=== PATIENT | female | born 1940 | race Caucasian/White ===

== ENCOUNTER 2017-01-24 20:01 | Inpatient (IN) | payer MEDICARE, OTHER ==
[~2017-01-24] VITALS: Ht 147.3 cm; Wt 53.5 kg
[2017-01-24 21:55] LABS: RED BLOOD COUNT 3.91 M/UL (4.00-5.10)
[2017-01-24 22:15] LABS: BUN/CREATININE RATIO 16 (0-10)
[2017-01-25 07:42] LABS: BUN/CREATININE RATIO 14 (0-10)
[2017-01-25] MEDS ORDERED: MAGNESIUM100 MG PO (11:38)
[2017-01-25] MEDS ORDERED: VITAMIN B-1000 MCG/M IM (11:40)
[2017-01-25] MEDS ORDERED: POTASSIUM99 M1 PO (11:40)
[2017-01-25] MEDS ORDERED: COREG 25MG TAB25 MG PO (12:21)
[2017-01-25] MEDS ORDERED: NEURONTIN 400400 MG PO (12:21)
[2017-01-25] MEDS ORDERED: CLARITIN10 M2 PO (12:22)
[2017-01-25] MEDS ORDERED: KLONOPIN TAB 00.5 MG PO (12:22)
[2017-01-25] MEDS ORDERED: OMEPRAZOLE20 M1 PO (12:22)
[2017-01-25] MEDS ORDERED: SYNTHROID75 MCG PO (12:23)
[2017-01-25] MEDS ORDERED: VERAPAMIL SR240 MG PO (12:23)
[2017-01-25] MEDS ORDERED: COZAAR100 MG PO (12:23)
[2017-01-25] MEDS ORDERED: ULTRAM50 MG PO (12:24)
[2017-01-25] MEDS ORDERED: ROPINIROLE HCL0.5 MG PO (12:24)
[2017-01-25] MEDS ORDERED: COLACE 100MG C100 MG PO (12:24)
[2017-01-25] MEDS ORDERED: HYDROCHLOROTHIA25 MG PO (12:30)
[2017-01-25] MEDS ORDERED: MULTIVITAMINS1 EAC2 PO (12:31)
[2017-01-28 05:44] LABS: BUN/CREATININE RATIO 18 (0-10)
[2017-01-28 17:16] LABS: BUN/CREATININE RATIO 16 (0-10)
[2017-01-29 06:05] LABS: BUN/CREATININE RATIO 20 (0-10)
[2017-01-30] MEDS ORDERED: PROTONIX40 MG PO (13:36)
== END 2017-01-30 14:36 | disposition home health service (06) | DRG 640 ==
LOC: ER1 20:01 → ZEROF 23:40 → M/S 01-25 17:04
PROVIDERS: Emergency Medicine; Internal Medicine; Internal Medicine Nephrology; Physician Assistant Medical; ADMIT Internal Medicine
DX: E87.1 Hypo-osmolality and hyponatremia (principal); G93.40 Encephalopathy, unspecified; G45.9 Transient cerebral ischemic attack, unspecified; I10 Essential (primary) hypertension; I45.81 Long QT syndrome; T50.2X5A Adverse effect of carbonic-anhydrase inhibitors, benzothiadiazides and other diuretics, initial encounter; M06.9 Rheumatoid arthritis, unspecified; E03.9 Hypothyroidism, unspecified; Z86.73 Personal history of transient ischemic attack (TIA), and cerebral infarction without residual deficits; K44.9 Diaphragmatic hernia without obstruction or gangrene; G25.81 Restless legs syndrome; Z96.1 Presence of intraocular lens; M25.551 Pain in right hip; Z91.81 History of falling; Z28.21 Immunization not carried out because of patient refusal; Z79.899 Other long term (current) drug therapy; I25.2 Old myocardial infarction; Y92.009 Unspecified place in unspecified non-institutional (private) residence as the place of occurrence of the external cause
CPT/HCPCS: ECHO; 36415; 70450; 71010; 72125; 73502; 80048; 80053; 81001; 82570; 83690; 83735; 83880; 83930; 83935; 84300; 84439; 84443; 84478; 84484; 85025; 85610; 85730; 87040; 87077; 87086; 87186; 93005; 93306; 96361; 96365; 97110; 97116; 97530; 97535; 99291; J7040

== ENCOUNTER 2021-04-07 23:33 | Inpatient (IN) | payer MEDICARE, OTHER ==
[~2021-04-07] VITALS: Ht 149.9 cm; Wt 70.8 kg
[~2021-04-07 23:33] MED LIST: ALENDRONATE SOD70 MG PO; ANTIVERT 25MG T25 MG PO; CLARITIN10 M2 PO; COLACE 100MG C100 MG PO; COREG 25MG TAB25 MG PO; COZAAR100 MG PO; CULTURELLE1 EACH PO; DESYREL 50 MG T50 MG PO; ECOTRIN81 MG PO; FEOSOL325 MG PO; FISH OIL 1,0001 EAC1 PO; FLEXERIL 10 MG10 MG PO; FOLIC ACID 1 MG1 MG PO; HYDROCHLOROTHIA25 MG PO; K-DUR TAB 10 M10 MEQ PO; KLONOPIN TAB 00.5 MG PO; KLONOPIN1 MG PO; LIDOPATCH1 EACH TP; MAGNESIUM100 MG PO; METHOTREXATE T2.5 MG PO; MULTIVITAMINS1 EAC2 PO; NEURONTIN 400400 MG PO; OMEPRAZOLE20 M1 PO; PLAQUENIL 200200 MG PO; POTASSIUM99 M1 PO; PREDNISONE5 MG PO; PROTONIX40 MG PO; ROPINIROLE HCL0.5 MG PO; SINGULAIR10 MG PO; SYNTHROID75 MCG PO; TAMIFLU75 MG PO; THERAGRAN M TAB1 EA PO; TREXALL10 MG PO; ULTRAM50 MG PO; VERAPAMIL SR240 MG PO; VITAMIN B-1000 MCG/M IM; VITAMIN B-1000 MCG/M SC; VITAMIN C500 M2 PO; ZOFRAN4 MG PO; [UNRECOGNIZED DRUG - OTHER] TOP; [UNRECOGNIZED DRUG - OTHER] TOP
[2021-04-08] MEDS ORDERED: SYNTHROID100 MCG PO (00:49)
[2021-04-08] MEDS ORDERED: ROPINIROLE HCL1 MG PO (00:51)
[2021-04-08 01:12] LABS: HEMOGLOBIN 11.1 gm/dl (12.3-15.3); RED BLOOD COUNT 3.5 M/UL (4.00-5.10)
[2021-04-08 01:23] LABS: BUN/CREATININE RATIO 7 (0-10)
[2021-04-08] MEDS ORDERED: ALENDRONATE SOD70 MG PO (04:35)
[2021-04-08] MEDS ORDERED: CARAFATE1 GM PO (04:37)
[2021-04-08] MEDS ORDERED: HYDROCODON-ACE1 EAC1 PO (04:38)
[2021-04-08] MEDS ORDERED: GABAPENTIN600 MG PO (04:39)
[2021-04-08] MEDS ORDERED: MUCUS RLF DM E1 EACH PO (04:40)
[2021-04-08] MEDS ORDERED: PLAQUENIL 200200 MG PO (04:41)
[2021-04-08] MEDS ORDERED: SINEQUAN CAP 1010 MG PO (04:41)
[2021-04-08] MEDS ORDERED: EDARBI80 MG PO (04:42)
[2021-04-08] MEDS ORDERED: LIPITOR TAB 2020 MG PO (04:42)
[2021-04-08] MEDS ORDERED: SERTRALINE HCL25 MG PO (04:43)
[2021-04-08] MEDS ORDERED: PREDNISONE 5 MG5 MG PO (04:43)
[2021-04-08] MEDS ORDERED: LEVOFLOXACIN750 MG PO (04:45)
[2021-04-08] MEDS ORDERED: CALCIUM + VITA1 EACH PO (04:45)
[2021-04-08] MEDS ORDERED: AMLODIPINE BESYL5 MG PO (04:45)
[2021-04-08] MEDS ORDERED: MEDROL TAB 4 MG4 MG PO (04:54)
[2021-04-08] MEDS ORDERED: IPRAT-ALBUT 0.5-3 ML INH (04:55)
[2021-04-08] MEDS ORDERED: HYDROCODON-ACE1 EAC2 PO (06:48)
[2021-04-08 10:04] LABS: BORDETELLA PARAPERTUSSIS Not Detected (Not Detectd); BORDETELLA PERTUSSIS Not Detected (Not Detectd); CHLAMYDIA PNEUMONIAE Not Detected (Not Detectd); CORONAVIRUS HKU1 Not Detected (Not Detectd); CORONAVIRUS NL63 Not Detected (Not Detectd); CORONAVIRUS OC43 Not Detected (Not Detectd); CORONOAVIRUS 229E Not Detected (Not Detectd); HUMAN METAPNEUMOVIRUS Not Detected (Not Detectd); HUMAN RHINOVIRUS/ENTEROVIRUS Not Detected (Not Detectd); INFLUENZA A Not Detected (Not Detectd); INFLUENZA B Not Detected (Not Detectd); MYCOPLASMA PNEUMONIAE Not Detected (Not Detectd); PARAINFLUENZA VIRUS 1 Not Detected (Not Detectd); PARAINFLUENZA VIRUS 2 Not Detected (Not Detectd); PARAINFLUENZA VIRUS 4 Not Detected (Not Detectd); RESPIRATORY SYNCYTIAL VIRUS Not Detected (Not Detectd)
[2021-04-08 12:44] LABS: PARAINFLUENZA VIRUS 3 DETECTED (Not Detectd); SARS-CoV-2 NOT DETECTED (Not Detectd)
--- NOTE | 2021-04-08 14:16 | NUR ---
reported to dr. herrera patient very anxious and complaints of sick of her stomach. received order for chyna and stated I have to see patient first
[2021-04-09 03:27] LABS: HEMOGLOBIN 10.2 gm/dl (12.3-15.3); RED BLOOD COUNT 3.2 M/UL (4.00-5.10)
[2021-04-09 03:35] LABS: WHITE BLOOD COUNT 10.5 K/UL (4.5-11.0)
[2021-04-09 03:51] LABS: BUN/CREATININE RATIO 11 (0-10)
--- NOTE | 2021-04-09 05:58 | NUR ---
0536 WENT INTO PATIENT'S ROOM TO GIVE HER MORNING MEDICINE. PATIENT BECAME ANXIOUS AND WOKE HER DAUGHTER UP. PATIENT STATED SHE WAS NOT TAKING HER MEDICATION UNTIL SHE TOOK HER GOWN OFF BECAUSE SHE WAS BURNING UP. DAUGHTER GOT UPSET WITH PATIENT AND LEFT. THIS MADE THE PATIENT GET EVEN MORE ANXIOUS AND SHE GOT UP OUT OF BED. PATIENT YELLING AT STAFF. PATIENT TOOK TELEMETRY OFF AND TRIED TO RIP HER IV OUT. PATIENT REFUSED ALL MORNING PO MEDS. 9748 NOTIFIED YANETH PRINCEESCROW REPRESENTATIVE FOR POSSIBLE SITTER FOR PATIENT TODAY. YANETH STATED SHE WOULD COME AND TALK TO THE PATIENT AND TRY TO CONSOLE HER.
--- NOTE | 2021-04-09 06:05 | NUR ---
0600 YANETH PRINCEPICK PULLING MACHINE OPERATOR CAME AND SPOKE TO PATIENT AND THE PATIENT STATED THAT SHE WOULD TAKE HER MEDICINE AND GET BACK INTO BED IF "WE JUST GAVE HER A MINUTE TO CALM DOWN." 0605 OSVALDO PRINCE AND PRECIOUS PRINCE IN ROOM TRYING TO CONSOLE PATIENT TO GIVE HER MEDICINE.
[2021-04-10 03:49] LABS: HEMOGLOBIN 9.1 gm/dl (12.3-15.3); RED BLOOD COUNT 2.89 M/UL (4.00-5.10)
[2021-04-10 04:03] LABS: WHITE BLOOD COUNT 6.5 K/UL (4.5-11.0)
[2021-04-10 04:14] LABS: BUN/CREATININE RATIO 12 (0-10)
[2021-04-11 00:35] LABS: HEMOGLOBIN 9.1 gm/dl (12.3-15.3); RED BLOOD COUNT 2.89 M/UL (4.00-5.10); WHITE BLOOD COUNT 5.1 K/UL (4.5-11.0)
[2021-04-11 01:05] LABS: BUN/CREATININE RATIO 7 (0-10)
[2021-04-11 04:59] LABS: BUN/CREATININE RATIO 7 (0-10)
[2021-04-12 02:12] LABS: HEMOGLOBIN 9.3 gm/dl (12.3-15.3); RED BLOOD COUNT 2.94 M/UL (4.00-5.10); WHITE BLOOD COUNT 5.6 K/UL (4.5-11.0)
[2021-04-12 02:32] LABS: BUN/CREATININE RATIO 7 (0-10)
[2021-04-14 01:23] LABS: BUN/CREATININE RATIO 5 (0-10)
--- NOTE | 2021-04-15 17:50 | NUR ---
INSTRUCTED ON IMPORTANCE OF RETURNING TO HOSPITAL FOR CHEST PAIN, FOLLOW UP WITH MD SCHEDULED. VERBALIZED UNDERSTANDING. JEROMY MCRAE R.N.
== END 2021-04-15 18:52 | disposition home or self-care (01) | DRG 193 ==
LOC: ER1 23:33 → M/S 04-08 03:20 → CDU 04-08 03:20 → M/S 04-08 04:06
PROVIDERS: Internal Medicine; Internal Medicine Nephrology; Physician Assistant Medical; ADMIT Internal Medicine
DX: J10.08 Influenza due to other identified influenza virus with other specified pneumonia (principal); J96.21 Acute and chronic respiratory failure with hypoxia; E87.1 Hypo-osmolality and hyponatremia; D84.9 Immunodeficiency, unspecified; G89.29 Other chronic pain; M54.9 Dorsalgia, unspecified; E03.9 Hypothyroidism, unspecified; J39.8 Other specified diseases of upper respiratory tract; F41.9 Anxiety disorder, unspecified; J18.9 Pneumonia, unspecified organism; M06.9 Rheumatoid arthritis, unspecified; Z20.822 Contact with and (suspected) exposure to COVID-19; F03.90 Unspecified dementia, unspecified severity, without behavioral disturbance, psychotic disturbance, mood disturbance, and anxiety; I10 Essential (primary) hypertension; K44.9 Diaphragmatic hernia without obstruction or gangrene; E87.6 Hypokalemia; Z79.891 Long term (current) use of opiate analgesic; Z86.73 Personal history of transient ischemic attack (TIA), and cerebral infarction without residual deficits; Z98.49 Cataract extraction status, unspecified eye; Z82.49 Family history of ischemic heart disease and other diseases of the circulatory system
CPT/HCPCS: 36415; 36600; 71045; 71250; 71260; 80048; 80053; 82436; 82533; 82803; 83605; 83880; 83930; 83935; 84132; 84133; 84295; 84300; 84443; 84484; 85025; 85027; 87040; 87070; 87081; 87205; 87278; 87633; 93005; 94640; 94664; 94760; 96374; 97116-GP-CQ; 97161; 97166; 97530-GP-CQ; 97535; 99285; J0692; J1335; J1650; J2185; J2270; J2405; J7030; J7131; Q9963; U0002

== ENCOUNTER 2021-07-31 14:29 | Inpatient (IN) | payer MEDICARE, OTHER ==
[~2021-07-31] VITALS: Ht 149.9 cm; Wt 61.2 kg
[~2021-07-31 14:29] MED LIST changes: +AMLODIPINE BESYL5 MG PO; +CALCIUM + VITA1 EACH PO; +CARAFATE1 GM PO; +EDARBI80 MG PO; +GABAPENTIN600 MG PO; +HYDROCODON-ACE1 EAC1 PO; +HYDROCODON-ACE1 EAC2 PO; +IPRAT-ALBUT 0.5-3 ML INH; +LEVOFLOXACIN750 MG PO; +LIPITOR TAB 2020 MG PO; +MEDROL TAB 4 MG4 MG PO; +MUCUS RLF DM E1 EACH PO; +PREDNISONE 5 MG5 MG PO; +ROPINIROLE HCL1 MG PO; +SERTRALINE HCL25 MG PO; +SINEQUAN CAP 1010 MG PO; +SYNTHROID100 MCG PO
[2021-07-31 16:02] LABS: HEMOGLOBIN 11.4 gm/dl (12.3-15.3); RED BLOOD COUNT 3.58 M/UL (4.00-5.10); WHITE BLOOD COUNT 8.2 K/UL (4.5-11.0)
[2021-07-31 16:32] LABS: BUN/CREATININE RATIO 9 (0-10)
[2021-08-01] MEDS ORDERED: EDARBI80 MG PO (04:12)
[2021-08-01 06:29] LABS: BUN/CREATININE RATIO 8 (0-10)
== END 2021-08-01 12:15 | disposition left against medical advice (07) | DRG 643 ==
LOC: ER1 14:29 → CDU 17:35
PROVIDERS: Preventive Medicine Occupational Medicine; ADMIT Internal Medicine
DX: E22.2 Syndrome of inappropriate secretion of antidiuretic hormone (principal); G93.41 Metabolic encephalopathy; M06.9 Rheumatoid arthritis, unspecified; E03.9 Hypothyroidism, unspecified; I10 Essential (primary) hypertension; F03.90 Unspecified dementia, unspecified severity, without behavioral disturbance, psychotic disturbance, mood disturbance, and anxiety; K44.9 Diaphragmatic hernia without obstruction or gangrene; Z20.822 Contact with and (suspected) exposure to COVID-19; Z86.73 Personal history of transient ischemic attack (TIA), and cerebral infarction without residual deficits; Z98.49 Cataract extraction status, unspecified eye; Z98.890 Other specified postprocedural states; Z82.49 Family history of ischemic heart disease and other diseases of the circulatory system
CPT/HCPCS: 36600; 51701; 70450; 71045; 80048; 80053; 81001; 82140; 82533; 82550; 82553; 82570; 82803; 83690; 83874; 83935; 84300; 84439; 84443; 84484; 85025; 85652; 86140; 87086; 99285; J1650; J7030; U0002

== ENCOUNTER 2021-12-24 20:23 | Observation (INO) | payer MEDICARE, OTHER ==
[~2021-12-24] VITALS: Ht 149.9 cm; Wt 55.3 kg
[~2021-12-24 20:23] MED LIST changes: -SYNTHROID100 MCG PO; +SYNTHROID50 MCG PO
[2021-12-24 22:19] LABS: HEMOGLOBIN 14.1 gm/dl (12.3-15.3); RED BLOOD COUNT 4.48 M/UL (4.00-5.10); WHITE BLOOD COUNT 5.5 K/UL (4.5-11.0)
[2021-12-24 22:43] LABS: BUN/CREATININE RATIO 22 (0-10)
[2021-12-25 05:43] LABS: BUN/CREATININE RATIO 22 (0-10)
[2021-12-25] MEDS ORDERED: AMLODIPINE BES2.5 MG PO (10:09)
[2021-12-25] MEDS ORDERED: EDARBI80 MG PO (10:10)
[2021-12-25] MEDS ORDERED: SUCRALFATE1 GM PO (10:10)
[2021-12-25] MEDS ORDERED: PROMETHAZINE12.5 M1 PO (10:11)
[2021-12-25] MEDS ORDERED: SODIUM CHLORIDE1 GM PO (10:11)
[2021-12-26 04:32] LABS: HEMOGLOBIN 11.1 gm/dl (12.3-15.3); RED BLOOD COUNT 3.5 M/UL (4.00-5.10); WHITE BLOOD COUNT 3.4 K/UL (4.5-11.0)
[2021-12-26 04:53] LABS: BUN/CREATININE RATIO 14 (0-10)
[2021-12-26] MEDS ORDERED: POTASSIUM CHLO20 ME1 PO (11:50)
--- NOTE | 2021-12-26 12:40 | NUR ---
PATIENTS DAUGHTER STATES THAT HER RIDE IS HERE AT THIS TIME AND THAT THEY CANNOT WAIT. PROVIDER MADE AWARE THAT PATIENT WANTS TO LEAVE BE FORE FINISHING THE MAGNESIUM INSUSION. HE STATES THAT IT IS FINE TO GO AHEAD AND DC THE PATIENT.
== END 2021-12-26 13:02 | disposition home or self-care (01) ==
LOC: ER1 20:23 → CDU 12-25 02:02 → M/S 12-25 16:07
PROVIDERS: Internal Medicine; Physician Assistant; ADMIT Internal Medicine
DX: U07.1 COVID-19 (principal); J02.9 Acute pharyngitis, unspecified; E22.2 Syndrome of inappropriate secretion of antidiuretic hormone; I10 Essential (primary) hypertension; M06.9 Rheumatoid arthritis, unspecified; E03.9 Hypothyroidism, unspecified; E87.6 Hypokalemia; E83.42 Hypomagnesemia; K44.9 Diaphragmatic hernia without obstruction or gangrene; F03.90 Unspecified dementia, unspecified severity, without behavioral disturbance, psychotic disturbance, mood disturbance, and anxiety; Z79.52 Long term (current) use of systemic steroids; Z79.899 Other long term (current) drug therapy; Z86.73 Personal history of transient ischemic attack (TIA), and cerebral infarction without residual deficits
CPT/HCPCS: 0240U; 36415; 36600; 71045; 80048; 80053; 82550; 82553; 82803; 83735; 83874; 83880; 84100; 84295; 84439; 84443; 84484; 85025; 92610; 93005; G0378; J1650; J3475; J3480; J8610